=== PATIENT | female | born 1970 | race Caucasian/White ===

== ENCOUNTER 2019-05-28 09:15 | Emergency (ER) | payer SELFPAY ==
[2019-05-28 09:28] VITALS: BP 152/72; PULSE 67; RESP 18; TEMP 37.3; O2SAT 100; BMI 31.2
[2019-05-28 09:53] LABS: Bacteria Urine Many (>30); Culture Indicated Urine Cult Not Indicated; RBC Urine 5-10/HPF (0-5/HPF); Squamous Epithelial Cell Urine 5-10 /HPF (0-5/HPF); WBC Urine 10-30/HPF (0-5/HPF)
[2019-05-28 10:16] LABS: INR 1.2 (0.9-1.3); Prothrombin Time 13.3 SECONDS (10.1-12.7)
[2019-05-28 10:16] LABS: Pregnancy Test Urine Negative (Negative)
[2019-05-28 10:18] LABS: Add Manual Diff / Slide Review NO; Basophils Absolute Auto 0 /uL (0-100); Basophils Percent Auto 0.4 % (0-2); Eosinophils Absolute Auto 0 /uL (0-450); Eosinophils Percent Auto 0.1 % (2-4); Hematocrit 32.3 % (36-46); Hemoglobin 10.9 g/dL (12.0-16.0); Lymphocytes Absolute Auto 700 /uL (1100-4500); Lymphocytes Percent Auto 6.5 % (25-40); Mean Corpuscular HGB Conc 33.9 % (30-36); Mean Corpuscular Hemoglobin 26.2 PG (26-34); Mean Corpuscular Volume 77.5 fL (80-100); Monocytes Absolute Auto 1300 /uL (0-900); Monocytes Percent Auto 11.7 % (3-14); Neutrophils Absolute Auto 8800 /uL (1500-7000); Neutrophils Percent Auto 81.3 % (50-75); Platelet Count 378 X10^3/uL (150-400); Red Blood Cell Count 4.16 X10^6/uL (4.0-5.2); Red Cell Distribution Width 16.6 % (11.6-14.8); White Blood Cell Count 10.8 X10^3/uL (4.5-11.0)
[2019-05-28 10:19] LABS: PTT Partial Thromboplastin Tim 30 SECONDS (26.4-36.2)
[2019-05-28 10:20] LABS: Alanine Aminotransferase 12 IU/L (9-52); Albumin 3.9 g/dL (3.5-5.0); Albumin Globulin Ratio 1.1 (1.0-2.8); Alkaline Phosphatase 64 U/L (38-126); Aspartate Aminotransferase 14 IU/L (14-36); BUN Creatinine Ratio 18.3 (6-22); Bilirubin Total 0.8 mg/dL (0.2-1.3); Blood Urea Nitrogen 11 mg/dL (7-17); Calcium 9.4 mg/dL (8.4-10.2); Carbon Dioxide 27 mmol/L (22-32); Chloride 102 mmol/L (98-107); Estimated Glomerular Filt Rate > 60.0 mL/min (>60); Globulin 3.4 g/dL (1.7-4.1); Glucose 111 mg/dL (70-100); HEMOLYSIS < 15 (0-50); Lipase 36 U/L (23-300); Potassium 4.1 mmol/L (3.4-5.1); Sodium 142 mmol/L (137-145); Total Protein 7.3 g/dL (6.3-8.2)
[2019-05-28 10:30] VITALS: BP 145/68; PULSE 77; RESP 22; O2SAT 100
[2019-05-28] MEDS: SODIUM CHLORIDE 0.9% 1,000 ML 1000 ML IV ×2 (10:33→11:40)
[2019-05-28] MEDS: ONDANSETRON 4 MG/2 ML INJ IV (10:35)
--- NOTE | 2019-05-28 11:23 | DI.RAD.S_ITS ---
PROCEDURE: XR CHEST 2V INDICATIONS: cough, fever TECHNIQUE: 2 views of the chest were acquired. COMPARISON: None. FINDINGS: Surgical changes and devices: None. Lungs and pleura: Lungs are clear. No pleural effusions or pneumothorax. Mediastinum: Mediastinal contours are normal. Heart size is normal. Bones and chest wall: No suspicious bony abnormalities. Soft tissues appear unremarkable. IMPRESSION: No evidence acute pulmonary process. Dictated by: Sandoval Livingston M.D. on 05/28/2019 at 11:57 Approved by: Sandoval Livingston M.D. on 05/28/2019 at 11:57
[2019-05-28 11:30] VITALS: BP 141/61; PULSE 83; RESP 18; O2SAT 99
[2019-05-28] MEDS: ACETAMINOPHEN 325 MG TABLET 975 MG PO (11:39)
[2019-05-28] MEDS: KETOROLAC 60 MG/2 ML VIAL 30 MG IV (11:40)
[2019-05-28] MEDS: METOCLOPRAMIDE 10 MG/2 ML INJ IV (11:40)
--- NOTE | 2019-05-28 11:52 | ED_ITS ---
HPI - Nausea/Vomiting/Diarrhea <MIRIAM Singh-BC - Last Filed: 05/28/19 14:32> General Chief complaint: Nausea/Vomiting/Diarrhea Stated complaint: low back pain/n&v/shaky x7 days Time Seen by Provider: 05/28/19 11:10 Source: patient Mode of arrival: ambulatory Limitations: no limitations History of Present Illness HPI Narrative: The patient is a 49-year-old female nonsmoker who denies department medical history presents with a chief complaint of back pain that has been going on for several weeks. She states it started 2-3 weeks ago, when she noted some painful urination, cloudy urine and hematuria as well. She states this morning she woke up with nausea vomiting and diarrhea. She complains of low-grade temperatures over the past few days, but denies any today. She has tried several extra strength Tylenol for pain. She complains of headache, a cough, a painful cough which is nonproductive. She states that the pain radiates from her flank around to her front. She denies any vaginal symptoms. She denies any constipation. She states she has not taken anything for pain today. Related Data Previous Rx's Medication Instructions Recorded ciprofloxacin HCl [Cipro] 500 mg PO BID #20 tab 05/28/19 ondansetron 4 mg PO Q6H PRN #20 tab 05/28/19 Allergies Allergy/AdvReac Type Severity Reaction Status Date / Time No Known Drug Allergies Allergy Verified 05/28/19 09:28 Review of Systems <MIRIAM Singh- - Last Filed: 05/28/19 14:32> Review of Systems Narrative: GENERAL: Denies chills, fatigue, malaise, fever, sweats. HEENT: Denies sinus pain, ear pain, sore throat, difficulty swallowing, dizziness. RESPIRATORY: Denies dyspnea, cough, wheezing, hemoptysis, sputum. CARDIOVASCULAR: Denies chest pain, palpitations, orthopnea, edema, GASTROINTESTINAL: See HPI : See HPI MUSCULOSKELETAL: denies weakness, joint pain, or bony pain SKIN: Denies rash, skin lesions, or other NEUROLOGIC: Denies weakness, headache, numbness, change in speech, confusion, seizures, incoordination. PSYCHIATRIC: No concerning psychosocial issues. 12 point review of systems is negative except for those stated above PFSH <IRINA Singh - Last Filed: 05/28/19 14:32> Medical History (Updated 05/28/19 @ 14:28 by IRINA Singh) Family history non-contributory (Acute) Social History Smoking Status: Never smoker Social History Smoking Status: Never smoker Exam <IRINA Singh - Last Filed: 05/28/19 14:32> Narrative Exam Narrative: GENERAL: This is a well-nourished, well-developed patient, appears uncomfortable HEAD: Atraumatic. Normocephalic. No temporal or scalp tenderness. EYES: Pupils equal round and reactive. Extraocular motions intact. No scleral icterus. No injection or drainage. ENT: Nose without bleeding, purulent drainage or septal hematoma. Throat without erythema, tonsillar hypertrophy or exudate. Uvula midline. Airway patent. NECK: Trachea midline. No JVD or lymphadenopathy. Supple, nontender, no meningeal signs. CARDIOVASCULAR: Regular rate and rhythm without murmurs, gallops, or rubs. RESPIRATORY: Clear to auscultation. Breath sounds equal bilaterally. No wheezes, rales, or rhonchi. Occasional dry cough GASTROINTESTINAL: Abdomen soft, diffusely tender, nondistended. No hepato- splenomegaly, or palpable masses. No guarding. Active bowel sounds all 4 quadrants EXTREMITIES: No clubbing, cyanosis, or edema. No joint tenderness, effusion, or edema noted. BACK: Nontender without deformity or crepitance. CVA tenderness bilaterally NEURO: AOx3. SKIN: No rash or erythema. Initial Vital Signs Initial Vital Signs: Vital Signs Temperature 99.1 F 05/28/19 09:28 Pulse Rate 67 05/28/19 09:28 Respiratory Rate 18 05/28/19 09:28 Blood Pressure 152/72 H 05/28/19 09:28 Pulse Oximetry 100 05/28/19 09:28 <Laila Macias DO - Last Filed: 05/28/19 19:09> Initial Vital Signs Initial Vital Signs: Vital Signs Temperature 99.1 F 05/28/19 09:28 Pulse Rate 67 09/17/19 09:28 Respiratory Rate 18 05/28/19 09:28 Blood Pressure 152/72 H 05/28/19 09:28 Pulse Oximetry 100 05/28/19 09:28 Scores <IRINA Singh - Last Filed: 05/28/19 14:32> GCS [place] coma scale eye opening: Spontaneous [place] coma scale verbal response: Orientated [place] coma scale motor response: Obey commands [place] coma scale total score: 15 Course <IRINA Singh - Last Filed: 05/28/19 14:32> Orders Ordered: ED Orders 05/28/19 11:23 XR chest 2V Stat 05/28/19 11:59 Urine Culture Stat 05/28/19 12:37 EKG-12 Lead Stat Discontinued Medications Acetaminophen (Tylenol) 975 mg PO NOW ONE Stop: 05/28/19 11:27 Last Admin: 05/28/19 11:39 Dose: 975 mg Documented by: ALBERT Ciprofloxacin (Cipro) 500 mg PO NOW ONE Stop: 05/28/19 12:40 Last Admin: 05/28/19 13:11 Dose: 500 mg Documented by: ALBERT Sodium Chloride (Normal Saline 0.9%) 1,000 mls @ 1,000 mls/hr IV BOLUS ONE Stop: 05/28/19 11:25 Last Infusion: 05/28/19 12:05 Dose: 0 mls/hr Documented by: Admin: 05/28/19 10:33 Dose: 1,000 mls/hr Documented by: ALBERT Sodium Chloride (Normal Saline 0.9%) 1,000 mls @ 1,000 mls/hr IV BOLUS ONE Stop: 05/28/19 12:22 Last Infusion: 05/28/19 13:04 Dose: 0 mls/hr Documented by: Admin: 05/28/19 11:40 Dose: 1,000 mls/hr Documented by: ALBERT Ketorolac Tromethamine (Toradol) 30 mg IV NOW ONE Stop: 05/28/19 11:13 Last Admin: 05/28/19 11:40 Dose: 30 mg Documented by: ALBERT Metoclopramide HCl (Reglan) 10 mg IV NOW ONE Stop: 05/28/19 11:24 Last Admin: 05/28/19 11:40 Dose: 10 mg Documented by: ALBERT Ondansetron HCl (Zofran) 4 mg IV NOW ONE Stop: 05/28/19 10:34 Last Admin: 05/28/19 10:35 Dose: 4 mg Documented by: ALBERT Vital Signs Vital signs: Vital Signs - 8 hr 05/28/19 11:30 05/28/19 12:30 05/28/19 13:14 Pulse Rate 83 88 76 Respiratory Rate 18 17 16 Blood Pressure Blood Pressure [Right Arm] 141/61 H 139/63 134/65 Pulse Oximetry 99 97 100 05/28/19 13:36 Pulse Rate 74 Respiratory Rate 16 Blood Pressure 126/63 Blood Pressure [Right Arm] Pulse Oximetry 97 <Laila Macias DO - Last Filed: 05/28/19 19:09> Orders Ordered: ED Orders 05/28/19 11:23 XR chest 2V Stat 05/28/19 11:59 Urine Culture Stat 05/28/19 12:37 EKG-12 Lead Stat Discontinued Medications Acetaminophen (Tylenol) 975 mg PO NOW ONE Stop: 05/28/19 11:27 Last Admin: 05/28/19 11:39 Dose: 975 mg Documented by: ALBERT Ciprofloxacin (Cipro) 500 mg PO NOW ONE Stop: 05/28/19 12:40 Last Admin: 05/28/19 13:11 Dose: 500 mg Documented by: ALBERT Sodium Chloride (Normal Saline 0.9%) 1,000 mls @ 1,000 mls/hr IV BOLUS ONE Stop: 05/28/19 11:25 Last Infusion: 05/28/19 12:05 Dose: 0 mls/hr Documented by: Admin: 05/28/19 10:33 Dose: 1,000 mls/hr Documented by: ALBERT Sodium Chloride (Normal Saline 0.9%) 1,000 mls @ 1,000 mls/hr IV BOLUS ONE Stop: 05/28/19 12:22 Last Infusion: 05/28/19 13:04 Dose: 0 mls/hr Documented by: Admin: 05/28/19 11:40 Dose: 1,000 mls/hr Documented by: ALBERT Ketorolac Tromethamine (Toradol) 30 mg IV NOW ONE Stop: 05/28/19 11:13 Last Admin: 05/28/19 11:40 Dose: 30 mg Documented by: ALBERT Metoclopramide HCl (Reglan) 10 mg IV NOW ONE Stop: 05/28/19 11:24 Last Admin: 05/28/19 11:40 Dose: 10 mg Documented by: ALBERT Ondansetron HCl (Zofran) 4 mg IV NOW ONE Stop: 05/28/19 10:34 Last Admin: 05/28/19 10:35 Dose: 4 mg Documented by: ALBERT Vital Signs Vital signs: Vital Signs - 8 hr 05/28/19 11:30 05/28/19 12:30 05/28/19 13:14 Pulse Rate 83 88 76 Respiratory Rate 18 17 16 Blood Pressure Blood Pressure [Right Arm] 141/61 H 139/63 134/65 Pulse Oximetry 99 97 100 05/28/19 13:36 Pulse Rate 74 Respiratory Rate 16 Blood Pressure 126/63 Blood Pressure [Right Arm] Pulse Oximetry 97 MDM - Nausea/Vomiting/Diarrhea <MIRIAM Singh- - Last Filed: 05/28/19 14:32> Lab Data Result diagrams: 05/28/19 10:00 05/28/19 10:00 Labs: Lab Results 05/28/19 05/28/19 05/28/19 Range/Units 09:33 09:33 10:00 WBC 10.8 (4.5-11.0) X10^3/uL RBC 4.16 (4.0-5.2) X10^6/uL Hgb 10.9 L (12.0-16.0) g/dL Hct 32.3 L (36-46) % MCV 77.5 L (80-100) fL MCH 26.2 (26-34) PG MCHC 33.9 (30-36) % RDW 16.6 H (11.6-14.8) % Plt Count 378 (150-400) X10^3/uL Neut % (Auto) 81.3 H (50-75) % Lymph % (Auto) 6.5 L (25-40) % [place] % (Auto) 11.7 (3-14) % Eos % (Auto) 0.1 L (2-4) % Baso % (Auto) 0.4 (0-2) % Neut # (Auto) 8800 H (8085-4351) /uL Lymph # (Auto) 700 L (9979-9519) /uL [place] # (Auto) 1300 H (0-900) /uL Eos # (Auto) 0 (0-450) /uL Baso # (Auto) 0 (0-100) /uL PT (10.1-12.7) SECONDS INR (0.9-1.3) APTT (26.4-36.2) SECONDS Sodium (137-145) mmol/L Potassium (3.4-5.1) mmol/L Chloride (98-107) mmol/L Carbon Dioxide (22-32) mmol/L BUN (7-17) mg/dL Creatinine (0.52-1.04) mg/dL Estimated GFR (>60) mL/min BUN/Creatinine Ratio (6-22) Glucose (70-100) mg/dL Calcium (8.4-10.2) mg/dL Total Bilirubin (0.2-1.3) mg/dL AST (14-36) IU/L ALT (9-52) IU/L Alkaline Phosphatase (38-126) U/L Total Protein (6.3-8.2) g/dL Albumin (3.5-5.0) g/dL Globulin (1.7-4.1) g/dL Albumin/Globulin Ratio (1.0-2.8) Lipase (23-300) U/L Urine RBC 5-10/hpf H (0-5/HPF) Urine WBC 10-30/hpf H (0-5/HPF) Ur Squamous Epith Cells 5-10 /hpf H (0-5/HPF) Urine Bacteria Many (>30) H (None) Ur Culture Indicated? Cult not indicated Urine Test Negative (Negative) 05/28/19 05/28/19 Range/Units 10:00 10:00 WBC (4.5-11.0) X10^3/uL RBC (4.0-5.2) X10^6/uL Hgb (12.0-16.0) g/dL Hct (36-46) % MCV (80-100) fL MCH (26-34) PG MCHC (30-36) % RDW (11.6-14.8) % Plt Count (150-400) X10^3/uL Neut % (Auto) (50-75) % Lymph % (Auto) (25-40) % [place] % (Auto) (3-14) % Eos % (Auto) (2-4) % Baso % (Auto) (0-2) % Neut # (Auto) (7324-6430) /uL Lymph # (Auto) (8743-6429) /uL [place] # (Auto) (0-900) /uL Eos # (Auto) (0-450) /uL Baso # (Auto) (0-100) /uL PT 13.3 H (10.1-12.7) SECONDS INR 1.2 (0.9-1.3) APTT 30 (26.4-36.2) SECONDS Sodium 142 (137-145) mmol/L Potassium 4.1 (3.4-5.1) mmol/L Chloride 102 (98-107) mmol/L Carbon Dioxide 27 (22-32) mmol/L BUN 11 (7-17) mg/dL Creatinine 0.60 (0.52-1.04) mg/dL Estimated GFR > 60.0 (>60) mL/min BUN/Creatinine Ratio 18.3 (6-22) Glucose 111 H (70-100) mg/dL Calcium 9.4 (8.4-10.2) mg/dL Total Bilirubin 0.8 (0.2-1.3) mg/dL AST 14 (14-36) IU/L ALT 12 (9-52) IU/L Alkaline Phosphatase 64 (38-126) U/L Total Protein 7.3 (6.3-8.2) g/dL Albumin 3.9 (3.5-5.0) g/dL Globulin 3.4 (1.7-4.1) g/dL Albumin/Globulin Ratio 1.1 (1.0-2.8) Lipase 36 (23-300) U/L Urine RBC (0-5/HPF) Urine WBC (0-5/HPF) Ur Squamous Epith Cells (0-5/HPF) Urine Bacteria (None) Ur Culture Indicated? Urine Test (Negative) Urine Dip Bedside Urine Glucose Negative Bedside Urine Bilirubin - Negative Bedside Urine Ketone - Negative Urine Specific [place] 1.015 Bedside Urine Occult Blood + Bedside Urine pH 7.0 Bedside Urine Protein + 30 Bedside Urine Urobilinogen +/- 1mg Bedside Urine Nitrite + Positive Bedside Urine Leukocytes +++ 500 Esterase Imaging Data Chest x-ray: Radiologist's impression: [address] [address] XRay Report Signed Patient: Oksana Schulz [facility]#: [id number] : 1970Acct:[id number] Age/Sex: 49 / FDate of Service: 05/28/19 Loc: ED Accession Number: [id number] Procedure: XR chest 2V Ordering Provider: Laila Tidwell-DAMION PROCEDURE: XR CHEST 2V INDICATIONS: cough, fever TECHNIQUE: 2 views of the chest were acquired. COMPARISON: None. FINDINGS: Surgical changes and devices: None. Lungs and pleura: Lungs are clear. No pleural effusions or pneumothorax. Mediastinum: Mediastinal contours are normal. Heart size is normal. Bones and chest wall: No suspicious bony abnormalities. Soft tissues appear unremarkable. IMPRESSION: No evidence acute pulmonary process. Dictated by: Sandoval Livingston M.D. on 05/28/2019 at 11:57 Approved by: Sandoval Livingston M.D. on 05/28/2019 at 11:57 [facility] Narrative Medical decision making narrative: The patient is a 49-year-old female who presents with a chief complaint of back pain times several weeks, as well as dysuria, cloudy urine, and slight hematuria. She does not have any leukocytosis, no high-grade fevers in the emergency department, but rather is a temperature 99.1?. However her urine is concerning for infection, with bacteria, leukocyte esterase and nitrites. Given her flank pain, vomiting, diarrhea I will treat her for pyelonephritis with ciprofloxacin. I discussed risk of tendon injury. The patient passed a p.o. trial in the emergency department and kept down a dose of Cipro. Urine cultures pending at this time. I did give the patient a prescription for Zofran, a note for work, discussed at length return precautions of inability keep down fluids, worsening. Encourage PCP follow-up. Patient states understanding and has no questions or concerns upon discharge. <Laila Macias DO - Last Filed: 05/28/19 19:09> Lab Data Labs: Lab Results 05/28/19 05/28/19 05/28/19 Range/Units 09:33 09:33 10:00 WBC 10.8 (4.5-11.0) X10^3/uL RBC 4.16 (4.0-5.2) X10^6/uL Hgb 10.9 L (12.0-16.0) g/dL Hct 32.3 L (36-46) % MCV 77.5 L (80-100) fL MCH 26.2 (26-34) PG MCHC 33.9 (30-36) % RDW 16.6 H (11.6-14.8) % Plt Count 378 (150-400) X10^3/uL Neut % (Auto) 81.3 H (50-75) % Lymph % (Auto) 6.5 L (25-40) % [place] % (Auto) 11.7 (3-14) % Eos % (Auto) 0.1 L (2-4) % Baso % (Auto) 0.4 (0-2) % Neut # (Auto) 8800 H (5158-0614) /uL Lymph # (Auto) 700 L (8604-4771) /uL [place] # (Auto) 1300 H (0-900) /uL Eos # (Auto) 0 (0-450) /uL Baso # (Auto) 0 (0-100) /uL PT (10.1-12.7) SECONDS INR (0.9-1.3) APTT (26.4-36.2) SECONDS Sodium (137-145) mmol/L Potassium (3.4-5.1) mmol/L Chloride (98-107) mmol/L Carbon Dioxide (22-32) mmol/L BUN (7-17) mg/dL Creatinine (0.52-1.04) mg/dL Estimated GFR (>60) mL/min BUN/Creatinine Ratio (6-22) Glucose (70-100) mg/dL Calcium (8.4-10.2) mg/dL Total Bilirubin (0.2-1.3) mg/dL AST (14-36) IU/L ALT (9-52) IU/L Alkaline Phosphatase (38-126) U/L Total Protein (6.3-8.2) g/dL Albumin (3.5-5.0) g/dL Globulin (1.7-4.1) g/dL Albumin/Globulin Ratio (1.0-2.8) Lipase (23-300) U/L Urine RBC 5-10/hpf H (0-5/HPF) Urine WBC 10-30/hpf H (0-5/HPF) Ur Squamous Epith Cells 5-10 /hpf H (0-5/HPF) Urine Bacteria Many (>30) H (None) Ur Culture Indicated? Cult not indicated Urine Test Negative (Negative) 05/28/19 05/28/19 Range/Units 10:00 10:00 WBC (4.5-11.0) X10^3/uL RBC (4.0-5.2) X10^6/uL Hgb (12.0-16.0) g/dL Hct (36-46) % MCV (80-100) fL MCH (26-34) PG MCHC (30-36) % RDW (11.6-14.8) % Plt Count (150-400) X10^3/uL Neut % (Auto) (50-75) % Lymph % (Auto) (25-40) % [place] % (Auto) (3-14) % Eos % (Auto) (2-4) % Baso % (Auto) (0-2) % Neut # (Auto) (1505-9831) /uL Lymph # (Auto) (5004-7530) /uL [place] # (Auto) (0-900) /uL Eos # (Auto) (0-450) /uL Baso # (Auto) (0-100) /uL PT 13.3 H (10.1-12.7) SECONDS INR 1.2 (0.9-1.3) APTT 30 (26.4-36.2) SECONDS Sodium 142 (137-145) mmol/L Potassium 4.1 (3.4-5.1) mmol/L Chloride 102 (98-107) mmol/L Carbon Dioxide 27 (22-32) mmol/L BUN 11 (7-17) mg/dL Creatinine 0.60 (0.52-1.04) mg/dL Estimated GFR > 60.0 (>60) mL/min BUN/Creatinine Ratio 18.3 (6-22) Glucose 111 H (70-100) mg/dL Calcium 9.4 (8.4-10.2) mg/dL Total Bilirubin 0.8 (0.2-1.3) mg/dL AST 14 (14-36) IU/L ALT 12 (9-52) IU/L Alkaline Phosphatase 64 (38-126) U/L Total Protein 7.3 (6.3-8.2) g/dL Albumin 3.9 (3.5-5.0) g/dL Globulin 3.4 (1.7-4.1) g/dL Albumin/Globulin Ratio 1.1 (1.0-2.8) Lipase 36 (23-300) U/L Urine RBC (0-5/HPF) Urine WBC (0-5/HPF) Ur Squamous Epith Cells (0-5/HPF) Urine Bacteria (None) Ur Culture Indicated? Urine Test (Negative) Urine Dip Bedside Urine Glucose Negative Bedside Urine Bilirubin - Negative Bedside Urine Ketone - Negative Urine Specific [place] 1.015 Bedside Urine Occult Blood + Bedside Urine pH 7.0 Bedside Urine Protein + 30 Bedside Urine Urobilinogen +/- 1mg Bedside Urine Nitrite + Positive Bedside Urine Leukocytes +++ 500 Esterase Discharge Plan Departure Patient Disposition: Home Clinical Impression: Pyelonephritis Discharge Date/Time: 05/28/19 13:53 Instructions: DI for Kidney Infection Activity Restrictions/Additional Instructions: Thank you for trusting us with your care today. I have started you on an antibiotic for a kidney infection as well as given her prescription for nausea medication. Please use [id number] medications as needed for pain. Please monitor for inability keep down fluids, worsening etc. Please come back to the emergency department if you have any acute concerns. Please follow up with primary care provider. I have given the contact information for [facility] health creative resource manager, who can help you identify with a primary care provider. Our walk-in clinic next or also does ER follow-up if needed. Please rest and push fluids. I have given you a work note for a few days. Please follow up with PCP and please come back to the emergency department for any acute concerns Prescriptions: New ondansetron 4 mg tablet,disintegrating 4 mg PO Q6H PRN (Reason: nausea and vomiting) Qty: 20 RF: 0 ciprofloxacin HCl [Cipro] 500 mg tablet 500 mg PO BID Qty: 20 RF: 0 Referrals: [facility] [Outside] Stand Alone Forms: Work Release Note
[2019-05-28 12:30] VITALS: BP 139/63; PULSE 88; RESP 17; O2SAT 97
[2019-05-28] MEDS: CIPROFLOXACIN 500 MG TABLET PO (13:11)
[2019-05-28 13:14] VITALS: BP 134/65; PULSE 76; RESP 16; O2SAT 100
[2019-05-28 13:36] VITALS: BP 126/63; PULSE 74; RESP 16; O2SAT 97
== END 2019-05-28 13:53 | disposition home or self-care (01) ==
PROVIDERS: Emergency Medicine; Emergency Provider Nurse Practitioner Family
DX: N10 Acute pyelonephritis (principal)
CPT/HCPCS: 36591; 71046; 80053; 81003; 81015; 81025; 83690; 85025; 85610; 85730; 87077; 87086; 87186; 93005; 96361; 96374; 96375; 99283; 99285; J1885; J2405; J2765